=== PATIENT | female | born 1965 | race Caucasian/White ===

== ENCOUNTER 2016-12-16 21:56 | Emergency (ER) | payer OTHER ==
[~2016-12-16] VITALS: Ht 162.6 cm; Wt 79.4 kg
--- NOTE | 2016-12-16 22:05 | NUR ---
TO BED 7 A 51 YO FEMALE BIBSELF WITH C/O PALPITATIONS X4 DAYS. UPON ARRIVAL TO ER, PATIENT IS AAOX4, AMBULATORY WITH STEADY GAIT. NSR 70-80 ON THE MONITOR, NONDIAPHORETIC, NO S/S OF ACUTE DISTRESS. VSS. PER PATIENT SHE FELT THE SAME SYMPTOMS 3 YEARS AGO WHEN SHE HAD THYROID PROBLEMS. PATIENT DOES NOT TAKE ANY MEDS AT THIS TIME. GOWNED. INITIATED COMFORT MEASURES. ONGOING VS MONITORING.
--- NOTE | 2016-12-16 22:17 | NUR ---
DR GERMAIN AT BEDSIDE FOR EVAL.
--- NOTE | 2016-12-16 22:20 | NUR ---
JOANNE POSADAS AT BEDSIDE FOR EKG.
--- NOTE | 2016-12-16 22:25 | NUR ---
PHLEB AT BEDSIDE TO DRAW BLOOD.
[2016-12-16 22:51] LABS: CALCIUM, SERUM 8.9 mg/dL (8.5-10.1); CARBON DIOXIDE 34 mmol/L (21-32); CHLORIDE 105 mmol/L (98-107); CREATININE 0.8 mg/dL (0.6-1.3); GLUCOSE 105 mg/dL (74-106); POTASSIUM 3.7 mmol/L (3.5-5.1); SODIUM SERUM 143 mmol/L (136-145); UREA NITROGEN, BLOOD 15 mg/dL (7-18)
[2016-12-16 22:52] LABS: BASOPHILS % (AUTO) 0.5 % (0.0-2.0); EOSINOPHILS # (AUTO) 0.3 /CMM (0.0-0.7); EOSINOPHILS % (AUTO) 4.8 % (0.0-6.0); HEMATOCRIT 39 % (33-45); LYMPHOCYTES # (AUTO) 1.8 /CMM (0.8-4.8); MEAN CORPUSCULAR HEMOGLOBIN 29 PG (26.0-33.0); MEAN CORPUSCULAR HGB CONC 33 g/dl (31.0-36.0); MEAN CORPUSCULAR VOLUME 88 fL (82-100); MONOCYTES # (AUTO) 0.7 /CMM (0.1-1.30); MONOCYTES % (AUTO) 9.5 % (2.0-12.0); NEUTROPHILS # (AUTO) 4.3 /CMM (1.8-8.9); NEUTROPHILS % (AUTO) 60.2 % (43.0-81.0); PLATELET COUNT (AUTO) 189 /CMM (150-450); RDW COEFFICIENT OF VARIATION 12.9 (11.5-15.0); RED BLOOD CELL COUNT(AUTO) 4.44 MIL/uL (4.0-5.2); WHITE BLOOD COUNT (AUTO) 7.1 K/uL (4.3-11.0)
--- NOTE | 2016-12-16 22:53 | NUR ---
Amauri frias in [facility] - 12/16/[address] at [address] Palomino at [facility] with [facility].
[2016-12-16 22:57] LABS: TROPONIN I < 0.017 ng/mL (0.00-0.056)
[2016-12-16 23:02] LABS: MAGNESIUM 1.8 mg/dL (1.8-2.4)
[2016-12-16 23:04] LABS: THYROID STIMULATING HORMONE 0.973 uIU/mL (0.358-3.74)
[2016-12-17 00:08] VITALS: BP 157/98
--- NOTE | 2016-12-17 00:09 | NUR ---
Patient discharged to home in stable condition. Written and verbal after care instructions given. Patient verbalizes understanding of instruction. pt ambulatory with a steady gait VITAL SIGNS WITHIN NORMAL LIMITS.
== END 2016-12-17 00:09 | disposition home or self-care (01) ==
LOC: ER 21:58
DX: R00.2 Palpitations (principal); I49.1 Atrial premature depolarization; E03.9 Hypothyroidism, unspecified
CPT/HCPCS: 36415; 80048-TC; 83735-TC; 84443-TC; 84484-TC; 85025-TC; A4606; Z7610

== ENCOUNTER 2022-04-23 08:50 | Emergency (ER) | payer OTHER ==
[~2022-04-23] VITALS: Ht 162.6 cm; Wt 93.0 kg
--- NOTE | 2022-04-23 08:55 | NUR ---
TO ER 16 AWAITING MD BALL
--- NOTE | 2022-04-23 09:05 | NUR ---
TO ER BED 16. BIBS C/O FLU SX,COUGH,BODY ACHE,DIARRHEA,NAUSEA AND VOMITING X 3 DAYS. PT IS A&OX4, ABLE TO AMBUALTE ON HER OWN. NO RESPIRATORY DISTRESS NOTED. AWAITING MD ORDERS.
--- NOTE | 2022-04-23 09:24 | NUR ---
IV ESTABLISHED L AC 20G
--- NOTE | 2022-04-23 09:29 | NUR ---
RAPID FLU COLLECTED AND SENT
[2022-04-23] MEDS ORDERED: IV NS 0.9% 1,000 ML IV ONE (09:30)
[2022-04-23] MEDS ORDERED: PROM6.2516 PO (09:57)
[2022-04-23] MEDS ORDERED: ONDA4TAB5 PO (09:57)
[2022-04-23 10:33] VITALS: BP 139/88
--- NOTE | 2022-04-23 10:33 | NUR ---
IV removed. Catheter intact and site benign. Pressure and 4x4 applied to site. No bleeding noted.Patient discharged to home in stable condition. Written and verbal after care instructions given. Patient verbalizes understanding of instruction.
== END 2022-04-23 10:34 | disposition home or self-care (01) ==
LOC: ER 08:54
DX: B34.9 Viral infection, unspecified (principal)
CPT/HCPCS: 99284; 96360; 71045; 87804 ×2; J7030